=== PATIENT | female | born 1985 | race Caucasian/White ===

== ENCOUNTER 2017-06-04 11:51 | Emergency (ER) | payer BC ==
[2017-06-04] MEDS ORDERED: Ondansetron 4 MG Tab.DIS PO ONE (12:21)
--- NOTE | 2017-06-04 12:21 | EDM.PDOC ---
ED HPI GENERAL MEDICAL PROBLEM - General Chief Complaint: General Stated Complaint: ORAL PAIN Time Seen by Provider: 06/04/17 12:11 Source of Information: Reports: Patient History Limitations: Reports: No Limitations - History of Present Illness INITIAL COMMENTS - FREE TEXT/NARRATIVE: HISTORY AND PHYSICAL: History of present illness: [Patient comes to the ER complaining of feeling queasy and nauseous. She had a root canal on , by her dentist, Dr. Alejandro, and was prescribed Pen VK QID for an abscess. Yesterday she called Dr. Alejandro and was prescribed metronidazole in addition to Pen VK. She has been taking Tylenol #3, alternating with ibuprofen. She has been taking her antibiotics together, every 6 hours. She is trying to take them with food, which is difficult when she gets up in the night to take her medications. No fever or chills. No abdominal pain constipation or diarrhea. She is urinating normally. She had 2 episodes of vomiting prior to arrival in the ER.] Review of systems: As per history of present illness and below otherwise all systems reviewed and negative. Past medical history: As per history of present illness and as reviewed below otherwise noncontributory. Surgical history: As per history of present illness and as reviewed below otherwise noncontributory. Social history: No reported history of drug or alcohol abuse. Family history: As per history of present illness and as reviewed below otherwise noncontributory. Physical exam: HEENT: Atraumatic, normocephalic. Oral mucous membranes moist. Lungs: Clear to auscultation, breath sounds equal bilaterally. Heart: S1S2, regular rate and rhythm. Abdomen: Normoactive bowel sounds. Abdomen is soft, nondistended, nontender. Negative for masses, guarding or rebound. Negative for costovertebral tenderness. Pelvis: Stable nontender. Genitourinary: Deferred. Rectal: Deferred. Extremities: Atraumatic, without deformity. Neurovascular unremarkable. Neuro: Awake, alert, oriented. Motor and sensory unremarkable throughout. Exam nonfocal. Therapeutics: [Zofran ODT 4mg po] Impression: [nausea, likely due to multiple medications] Plan: [Patient's nausea improves completely with 1 dose of Zofran. Patient discharged to home with Rx for Zofran ODT 4 mg #10 sig 1 by mouth every 6 hours as needed for nausea. She is given a schedule to alternate her antibiotics every 3 hours and can take pain meds when she needs them. Follow up with her dentist tomorrow. She is in agreement with today's plan. All questions are answered and concerns are addressed.] Definitive disposition and diagnosis as appropriate pending reevaluation and review of above. Dental Pain Score (Numeric/FACES): 5 - Related Data Allergies Allergy/AdvReac Type Severity Reaction Status Date / Time azithromycin [From Zithromax] Allergy Rash Verified 06/04/17 12:09 Home Meds: Home Meds Albuterol [Proventil HFA] 1 - 2 inh INH ASDIRECTED PRN 05/03/16 [History] Ibuprofen 600 mg PO Q4HR PRN #30 tablet 05/03/16 [Rx] Vit #76/Iron,Carb/Fa [Prenatabs Rx] 1 tab PO DAILY 05/03/16 [History] Acetaminophen with Codeine [Tylenol with Codeine #3 Tablet] 1 each PO Q6HR 06/04 [History] Ondansetron HCl [Zofran] 4 mg PO Q8HR #12 tablet 06/04/17 [Rx] Past Medical History Respiratory History: Reports: Other (See Below) Other Respiratory History: excercise induced asthma [employer] History: Reports: Spontaneous - Past Surgical History HEENT Surgical History: Reports: Oral Surgery Musculoskeletal Surgical History: Reports: Other (See Below) Social & Family History - Tobacco Use Smoking Status *Q: Never Smoker Second Hand Smoke Exposure: No - Recreational Drug Use Recreational Drug Use: No ED ROS GENERAL - Review of Systems Review Of Systems: ROS reveals no pertinent complaints other than HPI. ED EXAM, GENERAL - Physical Exam Exam: See Below Course - Vital Signs Last Recorded V/S: Last Vital Signs Temp 97.3 F 06/04/17 12:23 Pulse 79 06/04/17 12:23 Resp 18 06/04/17 12:23 BP 143/81 H 06/04/17 12:23 Pulse Ox 99 06/04/17 12:23 - Orders/Labs/Meds Meds: Medications Discontinued Medications Generic Name Dose Route Start Last Admin Trade Name Freq PRN Reason Stop Dose Admin Ondansetron HCl 4 mg 06/04/17 12:21 06/04/17 12:56 Zofran Odt PO 06/04/17 12:22 4 mg ONETIME ONE Administration Departure - Departure Time of Disposition: 13:45 Disposition: Home, Self-Care 01 Condition: Good Clinical Impression: Nausea - Discharge Information Prescriptions: Ondansetron HCl [Zofran] 4 mg PO Q8HR #12 tablet Instructions: Nausea, Adult Referrals: John Lowry MD [Primary Care Provider] - Forms: ED Department Discharge Additional Instructions: The following information is given to patients seen in the emergency department who are being discharged to home. This information is to outline your options for follow-up care. We provide all patients seen in our emergency department with a follow-up referral. The need for follow-up, as well as the timing and circumstances, are variable depending upon the specifics of your emergency department visit. If you don't have a primary care physician on staff, we will provide you with a referral. We always advise you to contact your personal physician following an emergency department visit to inform them of the circumstance of the visit and for follow-up with them and/or the need for any referrals to a consulting specialist. The emergency department will also refer you to a specialist when appropriate. This referral assures that you have the opportunity for follow-up care with a specialist. All of these measure are taken in an effort to provide you with optimal care, which includes your follow-up. Under all circumstances we always encourage you to contact your private physician who remains a resource for coordinating your care. When calling for follow-up care, please make the office aware that this follow-up is from your recent emergency room visit. If for any reason you are refused follow-up, please contact the [facility] emergency department at and asked to speak to the emergency department charge nurse. [facility] [address] [place] [id number] Follow-up with her dentist tomorrow. Follow-up with your primary care provider if symptoms persist into the week. Return to ER as needed as discussed.
[2017-06-04 12:32] VITALS: BP 143/81
== END 2017-06-04 13:54 | disposition home or self-care (01) ==
LOC: MW.ED 11:51
DX: R11.2 Nausea with vomiting, unspecified (principal); Z88.1 Allergy status to other antibiotic agents; Z79.899 Other long term (current) drug therapy
CPT/HCPCS: 99283; A9270

== ENCOUNTER 2024-10-29 06:29 | Day surgery (SDC) | payer BC ==
[~2024-10-29 06:29] MED LIST: Sodium Chloride 0.9% 10 ML Syringe FLUSH PRN; Sodium Chloride 0.9% 2.5 ML Syringe FLUSH PRN; Sodium Chloride 0.9% 20 ML SDV IV PRN
[2024-10-29] MEDS: Lactated Ringers 1,000 ML IV SCH (07:10)
[2024-10-29] MEDS ORDERED: Lidocaine 2% 5 ML SDV ONE (07:26)
[2024-10-29] MEDS ORDERED: propofoL 500 MG/50 ML 50 ML ONE (07:26)
[2024-10-29] MEDS ORDERED: Water For Injection, Sterile 20 ML ONE (08:02)
[2024-10-29] MEDS ORDERED: dexmedeTOMIDine HCl 200 MCG/2 ML SDV ONE (08:02)
[2024-10-29 09:45] VITALS: BP 120/78; PULSE 74
== END 2024-10-29 09:14 | disposition home or self-care (01) ==
LOC: MW.SDS 06:29
PROVIDERS: ATTEND Surgery
DX: D12.3 Benign neoplasm of transverse colon (principal); K63.5 Polyp of colon; K29.80 Duodenitis without bleeding; K31.7 Polyp of stomach and duodenum; J45.909 Unspecified asthma, uncomplicated; F41.9 Anxiety disorder, unspecified; Z79.899 Other long term (current) drug therapy; Z88.1 Allergy status to other antibiotic agents
CPT/HCPCS: 43239; 45380; 81025; J2704; J7120; 00813; J3490